=== PATIENT | female | born 1980 | race African-American/Black ===

== ENCOUNTER 2017-08-19 12:20 | Emergency (ER) | payer OTHER ==
[2017-08-19 13:04] LABS: KETONE, URINE AUTO RFX NEGATIVE (NEGATIVE); LEUKOCYTE ESTERASE UR AUTO RFX NEGATIVE (NEGATIVE); NITRITE, URINE AUTO RFX NEGATIVE (NEGATIVE); RBC, URINE AUTO RFX 1 /HPF (0-3); SPECIFIC GRAVITY UR AUTO RFX 1.002 (1.002-1.035); SQUAM EPITHELIAL CELL UR AURFX 0 /HPF (0-6); WBC, URINE AUTO RFX 0 /HPF (0-3)
[2017-08-19 13:53] LABS: BASO # 0.1 10^3/uL (0.0-0.2); BASO % 0.7 % (0.0-1.0); EOS # 0.1 10^3/uL (0.0-0.50); EOS % 1.9 % (0.0-3.0); HEMATOCRIT 35.2 % (36.0-47.0); HEMOGLOBIN 11.3 g/dl (12.0-15.5); IMMATURE GRANULOCYTE % 0.3 % (0-3.0); LYMPH # 1.7 10^3/uL (1.5-4.5); LYMPH % 22.8 % (24.0-44.0); MEAN CORPUSCULAR HEMOGLOBIN 29.5 pg (27.0-33.0); MEAN CORPUSCULAR HGB CONC 32.1 g/dl (32.0-36.5); MEAN CORPUSCULAR VOLUME 91.9 fl (80.0-96.0); MONO # 0.6 10^3/uL (0.0-0.8); MONO % 7.4 % (0.0-5.0); NEUTROPHILS % 66.9 % (36.0-66.0); PLATELET COUNT, AUTOMATED 225 10^3/uL (150-450); RED BLOOD COUNT 3.83 10^6/uL (4.00-5.40); RED CELL DISTRIBUTION WIDTH 13.5 % (11.5-14.5); WHITE BLOOD COUNT 7.4 10^3/uL (4.0-10.0)
[2017-08-19 14:25] LABS: HCG, SERUM QUANTITATIVE 3770 MIU/ML
== END 2017-08-19 16:43 | disposition home or self-care (01) ==
LOC: M ED 12:20
DX: O03.4 Incomplete spontaneous abortion without complication (principal)
CPT/HCPCS: 76801

== ENCOUNTER → 2018-12-06 | Outpatient (CLI) | payer OTHER ==
[~2018-12-06] MED LIST: CALC500T49 PO; IRON65TA PO; PRENTAB31 PO
--- NOTE | 2018-12-06 15:32 | REP ---
ULTRASOUND LEFT AXILLA: Real-time sonographic evaluation of the left axilla performed for reported palpable abnormality for the past week. There are multiple lymph nodes identified demonstrating normal morphology and echogenic fatty willard. The largest measures 1.5 x 0.7 x 0.7 cm. No other abnormalities are seen. IMPRESSION: Several lymph nodes identified in the left axillary region with relatively normal morphology and echogenic fatty willard. The largest measures 1.5 x 0.7 x 0.7 cm. Electronically Signed by Leo Arreola MD 12/07/2018 04:40 P
== END ==
LOC: M RAD 11:46
PROVIDERS: ATTEND Obstetrics & Gynecology
DX: N63.20 Unspecified lump in the left breast, unspecified quadrant (principal)

== ENCOUNTER → 2019-05-06 | Outpatient (CLI) | payer OTHER ==
[~2019-05-06] MED LIST changes: +GASTROGRAFIN SOLUTION 30ML (Q9963) As Ordered ONE; +IRON65TA2 PO; +ISOVUE-370 76% 100ML VIAL (Q9967) As Ordered ONE; +OYST1TAB PO; +PRENCHW PO; +VITA-158 PO; +[UNRECOGNIZED DRUG - OTHER] TOP
--- NOTE | 2019-05-06 14:51 | REP ---
CT of the abdomen and pelvis with IV and oral contrast for abdominal pain: There are no comparison studies. The visualized lung huntley demonstrate mild focal pleural thickening in the deep posterior sulcus of the left lung lower lobe but otherwise unremarkable. The hepatic parenchyma, gallbladder, pancreas and spleen are normal size and unremarkable except for A 7 mm splenic cyst. The adrenals and kidneys are unremarkable. The abdominal aorta is unremarkable. There is no periaortic adenopathy or mass. There is no bowel distension or obstruction. The mesentery is unremarkable. There is diastases of the rectus abdominus 35.9 cm with protrusion of mesentery and bowel into the subcutaneous fat . Pelvis: The appendix and terminal ileum are unremarkable. The uterus and adnexa are unremarkable. There is no ascites or adenopathy. The bladder is unremarkable. Impression: There is diastases of the rectus abdominus measuring 5.9 cm. There is protrusion mesentery and bowel into the subcutaneous fat at the diastases. Otherwise, essentially negative CT of the abdomen and pelvis. Electronically Signed by Loe Smiley MD 05/06/2019 02:42 P
== END ==
LOC: M RAD 12:41
PROVIDERS: ATTEND Family Medicine
DX: R10.31 Right lower quadrant pain (principal)
CPT/HCPCS: 74178; Q9963; Q9967